=== PATIENT | female | born 1980 | race Caucasian/White ===

== ENCOUNTER → 2016-04-13 | Outpatient (CLI) | payer OTHER ==
[2016-04-13 16:42] LABS: CH 30.8; CHCM 32.7; HCT 39.7 % (34.0-46.0); HDW 2.98; HGB 12.7 gm/dL (11.4-16.0); MCH 30.4 pg (25.0-35.0); MCHC 31.9 g/dL (31.0-37.0); Mean Platelet Volume 7.8; RBC 4.18 m/uL (3.80-5.40); RDW 14.3 % (11.5-15.5); WBC 11.7 k/uL (3.8-10.6)
== END | disposition home or self-care (01) ==
LOC: LABWHC1 15:30
PROVIDERS: ATTEND Obstetrics & Gynecology
DX: Z34.02 Encounter for supervision of normal first pregnancy, second trimester (principal); Z3A.00 Weeks of gestation of pregnancy not specified
CPT/HCPCS: 36415; 82950; 85027

== ENCOUNTER → 2016-04-20 | Outpatient (CLI) | payer OTHER ==
[2016-04-20 12:44] LABS: Glucose 3 Hour, Gest 183 mg/dL
== END | disposition home or self-care (01) ==
LOC: LABWHC1 08:22
PROVIDERS: ATTEND Obstetrics & Gynecology
DX: O24.419 Gestational diabetes mellitus in pregnancy, unspecified control (principal); Z3A.00 Weeks of gestation of pregnancy not specified
CPT/HCPCS: 36415; 82951; 82952

== ENCOUNTER → 2016-05-15 | Outpatient (CLI) | payer OTHER ==
--- NOTE | 2016-05-15 11:47 | US ---
EXAMINATION TYPE: US OB >= 14 wk fetus third trimester DATE OF EXAM: 05/15/2016 11:30 AM COMPARISON: Prior ultrasound February 22, 2016 CLINICAL HISTORY: O36.63X0 LARGE FOR DATES TECHNIQUE: Transabdominal (TA) pelvic ultrasound GESTATIONAL AGE / DATING Physician Established: (31 weeks/2 days) EDC: 07/15/16 Dates by LMP: unknown Dates by First Scan: (31 weeks/2 days) EDC: 07/15/16 Dates by Current Scan: (30 weeks/5 days) EDC: 07/19/16 SURVEY IUP: Single PLACENTA: Anterior PREVIA: No Previa PATRICIA: 12.0 cm CERVICAL LENGTH (transabdominal: norm > 3.0cm): 3.0 cm BIOMETRY PRESENTATION: Vertex BPD: 8.1 cm 32 weeks / 3 days HC: 28.8 cm 31 weeks / 5 days AC: 26.8 cm 30 weeks / 6 days FL: 5.7 cm 30 weeks / 1 days ESTIMATED WEIGHT IN GRAMS: 1650 grams ESTIMATED WEIGHT IN LBS/OZS: 3 lbs. 10 oz. WEIGHT PERCENTAGE BASED ON ESTABLISHED DATES: 24% HC/AC: 1.1 FL/AC: 21.8 RHYTHM: Normal HEART RATE: 142 bpm MATERNAL WALL MEASUREMENT: 2.4 cm from skin to anterior uterine wall (if exam limited due to body hab itus). TECHNOLOGIST IMPRESSION: Normal appearing measurements, large body habitus. biometry measurements remain within normal limits on current study as detailed above. IMPRESSION: As above.
== END | disposition home or self-care (01) ==
LOC: RADUSWWP 10:49
PROVIDERS: ATTEND Obstetrics & Gynecology
DX: O36.63X0 Maternal care for excessive fetal growth, third trimester, not applicable or unspecified (principal); Z3A.31 31 weeks gestation of pregnancy
CPT/HCPCS: 76805

== ENCOUNTER → 2016-06-15 | Outpatient (CLI) | payer OTHER ==
[2016-06-15 18:32] LABS: Hemoglobin A1C 5.2 % (4.2-6.1)
== END | disposition home or self-care (01) ==
LOC: LABWHC1 14:22
PROVIDERS: ATTEND Obstetrics & Gynecology
DX: O24.419 Gestational diabetes mellitus in pregnancy, unspecified control (principal); Z3A.00 Weeks of gestation of pregnancy not specified
CPT/HCPCS: 36415; 83036

== ENCOUNTER 2016-07-08 18:22 | Inpatient (IN) | payer OTHER ==
[2016-07-08 19:15] VITALS: BMI 36.6
[2016-07-08] MEDS ORDERED: OXYTOCIN 10 UNIT/ML 1 ML VIAL IM PRN (19:25)
[2016-07-08] MEDS ORDERED: METHYLERGONOVINE 0.2 MG/ML 1 ML AMP IM PRN (19:25)
[2016-07-08] MEDS ORDERED: CARBOPROST TROMETHAMINE 250 MCG/ML 1 ML AMP IM PRN (19:25)
[2016-07-08] MEDS ORDERED: LIDOCAINE 1% (PF) 10 MG/ML (30 ML SDV) SQ PRN (19:25)
[2016-07-08] MEDS ORDERED: TERBUTALINE 1 MG/ML VIAL SQ PRN (19:25)
[2016-07-08] MEDS ORDERED: BUTORPHANOL 1 MG/ML 1 ML VIAL IV PRN (19:28)
[2016-07-08] MEDS ORDERED: OXYTOCIN 30 UNITS/500 ML NS 30 UNIT in SALINE 1 500ML.BAG IV SCH (19:30)
[2016-07-08] MEDS: LACTATED RINGERS 1,000 ML IV SCH ×2 (19:57→23:10)
[2016-07-08 19:59] LABS: Basophils % (A) 0 %; CH 30.4; CHCM 34.1; Eosinophils # (A) 0.1 k/uL (0-0.7); Eosinophils % (A) 0 %; HCT 41.2 % (34.0-46.0); HGB 13.7 gm/dL (11.4-16.0); Luc # (Auto) 0.25; Luc % (Auto) 2; Lymphocytes % (A) 13 %; MCH 29.8 pg (25.0-35.0); MCHC 33.3 g/dL (31.0-37.0); MCV 89.6 fL (80.0-100.0); Monocytes # (A) 0.6 k/uL (0-1.0); Monocytes % (A) 4 %; Neutrophils # (A) 12.1 k/uL (1.3-7.7); Neutrophils % (A) 80 %; RDW 14.5 % (11.5-15.5); WBC 15.1 k/uL (3.8-10.6); WBC (Perox) 15.06
[2016-07-08 20:12] LABS: Glucose,Whole Blood 96 mg/dL (75-99)
[2016-07-08 20:32] LABS: Hemoglobin A1C 5.3 % (4.2-6.1)
[2016-07-08] MEDS ORDERED: BUPIVACAINE (PF) 0.25% 30 ML VIAL ONE (22:08)
[2016-07-08] MEDS ORDERED: SODIUM CHLORIDE 0.9% 100 ML BAG ONE (22:08)
[2016-07-08] MEDS ORDERED: fentaNYL (PF) 50 MCG/ML 5 ML AMP ONE (22:08)
--- NOTE | 2016-07-09 02:55 | P.HPOB ---
History of Present Illness H&P Date: 07/09/16 Chief Complaint: SROM 36 year old presents at 38 weeks 6 days with spontaneous rupture of membranes at noon on 07-08-16. She presented around 7 pm and was 1-2/90/-2 anibal every 2-5 minutes. heart tones 110-115 with moderate variability and reactive. Review of Systems All systems: negative Constitutional: Denies chills, Denies fever Eyes: denies blurred vision, denies pain Ears, nose, mouth and throat: Denies headache, Denies sore throat Cardiovascular: Denies chest pain, Denies shortness of breath Respiratory: Denies cough Gastrointestinal: Denies abdominal pain, Denies diarrhea, Denies nausea, Denies vomiting Genitourinary: Denies dysuria, Denies hematuria Musculoskeletal: Denies myalgias Integumentary: Denies pruritus, Denies rash Neurological: Denies numbness, Denies weakness Psychiatric: Denies anxiety, Denies depression Endocrine: Denies fatigue, Denies weight change Past Medical History Past Medical History: No Reported History Additional Past Medical History / Comment(s): chronic back pain. Obstetric history: THis is her first and she has had care with Dr Valdez since 14 weeks. A+, abs neg, Rub Imm, RPR NR, Hep B neg. [facility] by [facility]. neg quad, normal anatomy US. Has been followed for GDM A1. GBS neg. History of Any Multi-Drug Resistant Organisms: None Reported Past Surgical History: No Surgical Hx Reported Past Anesthesia/Blood Transfusion Reactions: No Reported Reaction Past Psychological History: No Psychological Hx Reported Smoking Status: Never smoker Past Alcohol Use History: None Reported Past Drug Use History: None Reported - Past Family History Father Family Medical History: No Reported History Medications and Allergies Allergies Allergy/AdvReac Type Severity Reaction Status Date / Time pneumococcal 23-valent Allergy Rash/Hives Verified 11/12/15 23:03 polysacchari [From Pneumovax 23] Exam Osteopathic Statement: *. No significant issues noted on an osteopathic structural exam other than those noted in the History and Physical/Consult. - Vital Signs Vital signs: Vital Signs Temp Pulse Resp BP Pulse Ox 07/08/16 18:58 98.0 F 77 18 129/80 99 07/08/16 18:29 98.0 F 77 18 129/80 99 Intake and Output 07/08/16 07/08/16 07/09/16 14:59 22:59 06:59 Other: # Voids 1 Weight 99.79 kg Patient Weight 07/09/16 06:59 Weight 99.79 kg Heart: Regular rate and rhythm Lungs: Clear to auscultation bilaterally Abdomen: Soft, nontender Extremities: Negative Homans sign Results Result Diagrams: 07/08/16 19:45 Abnormal Lab Results - Last 24 Hours (Table) 07/08/16 Range/Units 19:45 WBC 15.1 H (3.8-10.6) k/uL Neutrophils # 12.1 H (1.3-7.7) k/uL Assessment and Plan (1) Spontaneous rupture of amniotic membranes Status: Acute (2) Normal labor Status: Acute Plan: 1. Admit to family place 2. Pitocin augmentation 3. Anticipate normal vaginal delivery
[2016-07-09] MEDS ORDERED: BENZOCAINE/MENTHOL SPRAY 1 GM/SPRAY AEROSOL TOPICAL PRN (03:54)
[2016-07-09] MEDS ORDERED: diphenhydrAMINE 25 MG CAP PO PRN (03:54)
[2016-07-09] MEDS ORDERED: WITCH HAZEL 1 EACH MED..PAD TOPICAL PRN (03:54)
[2016-07-09] MEDS ORDERED: diphenhydrAMINE 50 MG CAP PO PRN (03:54)
[2016-07-09] MEDS ORDERED: LANOLIN CREAM 5 GM TUBE TOPICAL PRN (03:54)
[2016-07-09] MEDS ORDERED: ACETAMINOPHEN TAB 325 MG TAB PO PRN (03:54)
[2016-07-09] MEDS ORDERED: ZOLPIDEM 5 MG TAB PO PRN (03:54)
[2016-07-09] MEDS ORDERED: SIMETHICONE 80 MG CHEWABLE PO PRN (03:54)
[2016-07-09] MEDS ORDERED: Acetaminophen-Codeine 300-30mg TAB PO PRN ×2 (03:54)
[2016-07-09] MEDS ORDERED: HYDROCORTISONE 2.5% RECTAL CREAM 30 GM TUBE RECTAL PRN (03:54)
[2016-07-09] MEDS ORDERED: diphenhydrAMINE 50 MG/ML 1 ML VIAL IVP PRN ×2 (03:54)
--- NOTE | 2016-07-09 04:02 | P.PROBDLV ---
Vaginal Delivery Note - . Vaginal Delivery Note: 36-year-old presented at 39 weeks with spontaneous rupture of membranes at noon. She presented to the hospital around 7 PM anibal every 2-5 minutes. Her cervix is dilated 1-2 cm, 90% effaced, -2 station. heart tones 110-115 with moderate variability and reactive. Pitocin augmentation was started. When she was 3 cm dilated she did get an epidural and was comfortable. She progressed slowly in her cervix was completely dilated at 3: 18 AM. She pushed, delivered a viable male infant over intact perineum under epidural anesthesia at 3:34 AM. Head delivered OA, nuchal cord 2 easily reduced, anterior shoulder which was the left shoulder delivered gentle downward traction followed by posterior shoulder and rest of body. Nose and mouth bulb suctioned, cord clamped and cut, infant placed mother's abdomen. Apgars 9, 9, weight 6 lbs. 14 oz. Placenta delivered spontaneously, intact with three-vessel cord at 3:36 AM. Vagina, cervix, and perineum were inspected. Bilateral labial lacerations repaired with 3-0 Vicryl. Estimated blood loss 250 mL. Mother and baby in stable condition.
[2016-07-09] MEDS: SENNOSIDES-DOCUSATE SODIUM 1 EACH TAB PO SCH ×2 (07:34→20:07)
[2016-07-09] MEDS: IBUPROFEN 600 MG TAB PO PRN ×2 (07:35→07:37)
[2016-07-09] MEDS: LACTATED RINGERS 1,000 ML IV SCH ×2 (20:07→22:42)
[2016-07-10 00:33] VITALS: TEMP 98
[2016-07-10] MEDS: IBUPROFEN 600 MG TAB PO PRN ×2 (04:16→11:28)
[2016-07-10 07:52] VITALS: BP 124/83; PULSE 79; RESP 20
[2016-07-10] MEDS: SENNOSIDES-DOCUSATE SODIUM 1 EACH TAB PO SCH (11:32)
--- NOTE | 2016-07-10 12:38 | P.DS ---
Providers Date of admission: 07/08/16 18:52 Expected date of discharge: 07/10/16 Attending physician: Shanon Robles Primary care physician: Franklin Valdez - Discharge Diagnosis(es) (1) Spontaneous rupture of amniotic membranes Current Visit: Yes Status: Resolved (2) Normal labor Current Visit: Yes Status: Resolved Hospital Course: 36-year-old presented at 39 weeks with spontaneous rupture of membranes and in labor. She did have Pitocin augmentation and an epidural. She underwent normal vaginal delivery and had an uncomplicated course. She denies nausea, vomiting, chest pain, shortness of breath, fever, chills, or calf pain. She will be discharged home day #1 in stable condition to follow-up with Dr. Valdez in 6 weeks. Plan - Discharge Summary New Discharge Prescriptions: Ibuprofen [Motrin] 600 mg PO Q6HR PRN #30 tab PRN Reason: Mild Pain Or Fever >= 100.5 Discharge Medication List Cephalexin [Keflex] 500 mg PO Q6HR #28 cap 11/13/15 [Rx] Ibuprofen [Motrin] 600 mg PO Q6HR PRN #30 tab 07/10/16 [Rx] Follow up Appointment(s)/Referral(s): Franklin Valdez DO [Primary Care Provider] - 6 Weeks Discharge Disposition: HOME SELF-CARE
== END 2016-07-10 16:20 | disposition home or self-care (01) | DRG 775 ==
LOC: FBPOP 18:22 → 4FBP 18:52
PROVIDERS: ADMIT Obstetrics & Gynecology; ATTEND Obstetrics & Gynecology
PROC: 10E0XZZ Delivery of Products of Conception, External Approach (ICD-10-PCS; principal; 2016-07-09)
PROC: 0HQ9XZZ Repair Perineum Skin, External Approach (ICD-10-PCS; 2016-07-09)
PROC: 00HU33Z Insertion of Infusion Device into Spinal Canal, Percutaneous Approach (ICD-10-PCS; 2016-07-09)
DX: O69.81X0 Labor and delivery complicated by cord around neck, without compression, not applicable or unspecified (principal); O24.420 Gestational diabetes mellitus in childbirth, diet controlled; G89.29 Other chronic pain; O99.89 Other specified diseases and conditions complicating pregnancy, childbirth and the puerperium; O70.0 First degree perineal laceration during delivery; M54.9 Dorsalgia, unspecified; Z37.0 Single live birth; Z3A.39 39 weeks gestation of pregnancy
CPT/HCPCS: 59025; 83036; 84112; 85025; 88307; 99213

== ENCOUNTER 2017-07-03 15:17 | Outpatient (CLI) | payer OTHER ==
[2017-07-03 15:42] LABS: Appearance,Urine Clear (Clear); Bilirubin,Urine Negative (Negative); Blood,Urine Negative (Negative); Color,Urine Light Yellow; Glucose,Urine (UA) Negative (Negative); Ketones,Urine Negative (Negative); Leukocyte Esterase,Urine Negative (Negative); Nitrite,Urine Negative (Negative); PH, Urine 6.5 (5.0-8.0); Protein,Urine Negative (Negative); Specific Gravity,Urine 1.002 (1.001-1.035); Urobilinogen,Urine <2.0 mg/dL (<2.0)
[2017-07-03 15:55] LABS: Basophils % (A) 0 %; Eosinophils # (A) 0.2 k/uL (0-0.7); Eosinophils % (A) 3 %; HGB 11.8 gm/dL (11.4-16.0); Lymphocytes # (A) 1.8 k/uL (1.0-4.8); Lymphocytes % (A) 27 %; MCH 28.1 pg (25.0-35.0); MCHC 32.7 g/dL (31.0-37.0); MCV 85.9 fL (80.0-100.0); Mean Platelet Volume 8.2; Monocytes # (A) 0.5 k/uL (0-1.0); Monocytes % (A) 7 %; Neutrophils # (A) 3.9 k/uL (1.3-7.7); Neutrophils % (A) 60 %; Platelet Count 199 k/uL (150-450); RBC 4.19 m/uL (3.80-5.40); RDW 14.5 % (11.5-15.5); WBC 6.5 k/uL (3.8-10.6)
[2017-07-03 16:05] LABS: ALT 30 U/L (9-52); AST 20 U/L (14-36); Blood Urea Nitrogen 5 mg/dL (7-17); LDH 523 U/L (313-618); Uric Acid 5.3 mg/dL (3.7-7.4)
--- NOTE | 2017-07-16 08:00 | P.MSEPDOC ---
Presenting Problems - Arrival Data Date of Arrival on Unit: 07/03/17 Time of Arrival on Unit: 15:30 Mode of Transport: Ambulatory - Complaint OB-Reason for Admission/Chief Complaint: PIH Comment: Pt arrived with script for PIH work up, seen by Dr. Valdez prior to arrival to triage. No MSE required. Medical History - Information : 2 Para: 1 Term: 1 : 0 Abortions: Spontaneous or Elective: 0 Number of Living Children: 1 - Gestational Age Gestational Age by JADYN (wks/days): 36 Weeks and 3 Days Disposition - Disposition OB Disposition: Discharge to home, Written follow up instructions reviewed Discharge Date: 07/03/17 Discharge Time: 16:25 I agree with the RN Medical Screening Exam: Yes Risk & Benefit of care provided described in d/c instruction: Yes Diagnosis: GESTATIONAL HTN W/O SIGNIFICANT PROTEINURIA, THIRD TRIMESTER
== END 2017-07-03 16:26 | disposition home or self-care (01) ==
LOC: FBPOP 15:17
PROVIDERS: ATTEND Obstetrics & Gynecology
DX: O13.3 Gestational [pregnancy-induced] hypertension without significant proteinuria, third trimester (principal); Z3A.36 36 weeks gestation of pregnancy
CPT/HCPCS: 59025; 81003; 82565; 83615; 84450; 84460; 84520; 84550; 85025

== ENCOUNTER 2017-07-23 10:10 | Inpatient (IN) | payer OTHER ==
[2017-07-22 15:48] VITALS: BMI 39.2
[2017-07-23] MEDS ORDERED: CITRIC ACID-SODIUM CITRATE 15 ML CUP PO ONE (10:44)
[2017-07-23] MEDS ORDERED: ceFAZolin IN SWFI 2 GM/20 ML SYRINGE IVP ONE (10:45)
[2017-07-23 11:36] LABS: Basophils % (A) 0 %; Eosinophils # (A) 0.1 k/uL (0-0.7); Eosinophils % (A) 1 %; HCT 34.6 % (34.0-46.0); HGB 11.4 gm/dL (11.4-16.0); Lymphocytes # (A) 1.8 k/uL (1.0-4.8); Lymphocytes % (A) 16 %; MCHC 33.1 g/dL (31.0-37.0); MCV 84.5 fL (80.0-100.0); Monocytes # (A) 0.6 k/uL (0-1.0); Monocytes % (A) 5 %; Neutrophils # (A) 8.4 k/uL (1.3-7.7); Neutrophils % (A) 76 %; Platelet Count 204 k/uL (150-450); RBC 4.09 m/uL (3.80-5.40); RDW 15.1 % (11.5-15.5); WBC 11.1 k/uL (3.8-10.6)
[2017-07-23] MEDS ORDERED: NALBUPHINE 10 MG/ML AMPUL ONE (12:20)
[2017-07-23] MEDS ORDERED: MORPHINE SULFATE (PF) 0.3 MG/0.3 ML SYR ONE (12:20)
[2017-07-23] MEDS ORDERED: KETOROLAC 30 MG/ML 1 ML VIAL ONE (12:20)
[2017-07-23] MEDS ORDERED: PHENYLEPHRINE-0.9% NACL SYG 1 MG/10 ML SYRINGE ONE (12:20)
[2017-07-23] MEDS ORDERED: ONDANSETRON 4 MG/2 ML VIAL ONE (12:20)
[2017-07-23] MEDS ORDERED: OXYTOCIN 10 UNIT/ML 1 ML VIAL ONE (12:20)
[2017-07-23] MEDS ORDERED: NALOXONE 0.4 MG/ML 1 ML VIAL IV PRN (12:57)
[2017-07-23] MEDS ORDERED: METOCLOPRAMIDE 5 MG/ML 2 ML VIAL IVP PRN (12:57)
[2017-07-23] MEDS ORDERED: ACETAMINOPHEN TAB 325 MG TAB PO PRN (12:57)
[2017-07-23] MEDS ORDERED: ONDANSETRON 4 MG/2 ML VIAL IVP PRN (12:57)
[2017-07-23] MEDS ORDERED: KETOROLAC 30 MG/ML 1 ML VIAL IVP PRN (12:57)
[2017-07-23] MEDS ORDERED: diphenhydrAMINE 25 MG CAP PO PRN (12:57)
[2017-07-23] MEDS ORDERED: diphenhydrAMINE 50 MG/ML 1 ML VIAL IVP PRN ×2 (12:57)
[2017-07-23] MEDS ORDERED: diphenhydrAMINE 50 MG CAP PO PRN (12:57)
[2017-07-23] MEDS ORDERED: ZOLPIDEM 5 MG TAB PO PRN (12:57)
[2017-07-23] MEDS ORDERED: HYDROcodone/APAP 5-325MG 1 EACH TAB PO PRN (12:59)
--- NOTE | 2017-07-23 13:01 | P.HPOB ---
History of Present Illness H&P Date: 07/23/17 Chief Complaint: Intrauterine at 39 weeks in breech presentation Abena is a 29-year-old at 39 and 2 weeks gestation who arrives for primary section due to breech presentation. Risks/benefits/ alternatives to a primary section with bilateral partial salpingectomy for family planning was done. Her course generally speaking was unremarkable. She is 37 years old and initially had an abnormal quad screen, but a recalculation reported out as negative. She was offered appointments with maternal- medicine but refused. She did pass her 3 her Glucola screen despite being gestationally diabetic last . Pertinent labs include A+ blood type, Rh antibody was negative. Rubella was immune, hepatitis B surface antigen as well as RPR both negative. Assessment intrauterine at term. Plan primary low transverse section with bilateral partial salpingectomy Past Medical History Past Medical History: Asthma Additional Past Medical History / Comment(s): chronic back pain,hx gestational diabetes with 1 rst ,yeast infecetion under abdominal fold. History of Any Multi-Drug Resistant Organisms: None Reported Past Surgical History: No Surgical Hx Reported Past Anesthesia/Blood Transfusion Reactions: No Reported Reaction Additional Past Anesthesia/Blood Transfusion Reaction / Comment(s): no hx of general anesthesia Past Psychological History: No Psychological Hx Reported Smoking Status: Never smoker Past Alcohol Use History: None Reported Past Drug Use History: None Reported - Past Family History Father Family Medical History: No Reported History Medications and Allergies Allergies Allergy/AdvReac Type Severity Reaction Status Date / Time pneumococcal 23-valent Allergy cellultitis Verified 07/22/17 15:40 polysacchari [From Pneumovax 23] Exam Osteopathic Statement: *. No significant issues noted on an osteopathic structural exam other than those noted in the History and Physical/Consult. - Vital Signs Vital signs: Vital Signs Temp Pulse Resp BP Pulse Ox 07/23/17 10:24 96.6 F L 111 H 16 130/81 96 Intake and Output 07/22/17 07/23/17 07/23/17 22:59 06:59 14:59 Other: Weight 107.048 kg 107.048 kg - OBG Physical Exam Breast: both: normal (no masses) Abdomen: bowel sounds normal, no diffuse tenderness, no bruit present, no guarding noted, no hepatomegaly, no splenomegaly, no mass Vulva: both: normal Vagina: normal moisture, no discharge Cervix: no lesion, no discharge Uterus: normal size, normal contour Adnexa: both: normal Anus/Rectum: normal perianal skin, no rectal mass, no hemorrhoids, heme negative Results Result Diagrams: 07/23/17 10:57 Abnormal Lab Results - Last 24 Hours (Table) 07/23/17 Range/Units 10:57 WBC 11.1 H (3.8-10.6) k/uL Neutrophils # 8.4 H (1.3-7.7) k/uL
--- NOTE | 2017-07-23 13:05 | P.OP ---
Date of Procedure: 07/23/17 Preoperative Diagnosis: Intrauterine at 39 weeks breech presentation: Family planning Postoperative Diagnosis: Same Procedure(s) Performed: Primary low transverse section from Pfannenstiel with bilateral partial salpingectomy Anesthesia: spinal Surgeon: Franklin Valdez Cage Manager #1: Aretha lPunkett Estimated Blood Loss (ml): 500 IV fluids (ml): 700 Urine output (ml): 100 Pathology: other (Placenta) Condition: stable Disposition: floor Operative Findings: Female scores of 9 and 9 at one and 5 minutes respectively and weight was 7 lbs. 14 oz. It was noted preoperatively that both she and her requested a tubal ligation. There were adamant that they were done having children and that she did not want to go through any more pregnancies and that permanent sterilization was what they desired. It was not previously discussed but as she is 37 years old and she is having a section from my standpoint is safer to do it now than to take her back to surgery at a later date. Description of Procedure: Patient was taken to the operating suite where spinal anesthetic was found be adequate. She was prepped and draped in the normal sterile fashion and placed in the dorsal supine position with leftward tilt. Initially a Pfannenstiel skin incision was made this incision was then carried through to underlying layer of the fascia was second knife. Fascia was then nicked in the midline and this opening was extended laterally with Pineda scissors. Superior and inferior aspect of this incision was then grasped tented up and bluntly and sharply dissected off the rectus muscles. Rectus muscles were then divided the midline and blunt dissection through the peritoneum was made. This opening was then extended superiorly and inferiorly with good visualization of both bowel bladder. Bladder blade was then placed and the bladder flap was identified and entered with the thumb scissors and carried across face the uterus with Metzenbaum scissors visually creating bladder flap. Next then used to incise uterus was fully developed through with hemostat and bluntly extended. Bladder was then brought up into the incision and baby was bottle was delivered with legs with gentle traction shoulders were swept and cleared and the head with a nuchal cord 1 was easily delivered and the nuchal was easily reduced. Mouth nares were then bulb suctioned and umbilical cord was clamped and cut in usual fashion with nursery being present to assume care. Placenta was then delivered intact and Pitocin was added to the IV. Uterus was then exteriorized cleared of clots and debris and closed in 1 layer with 0 Vicryl suture. Once excellent hemostasis was obtained 3-0 Vicryl was used to reapproximate the bladder flap. Fallopian tubes were then identified with hemostats clamped 3 cm from uterine cornu and a window created in the mesosalpinx with Bovie cautery. 2 proximal and 2 distal 2-0 silk sutures were placed approximately 2 cm apart with the intervening segment excised and tips cauterized. Once this was accomplished blood and debris was suctioned from the posterior cul-de-sac and the uterus was reinserted into the abdomen. Peritoneal layer was then closed with 0 Vicryl suture fascial layer was closed with 0 Vicryl suture one layer of 3-0 Vicryl was placed in deep subcuticular tissues to reapproximate the skin and close the space. Skin was then closed with 3-0 Vicryl subcuticularly. Sponge, lap, needle counts were all correct 2. Patient was then taken to the recovery room in stable and satisfactory condition.
[2017-07-23] MEDS: SENNOSIDES-DOCUSATE SODIUM 1 EACH TAB PO SCH (22:23)
[2017-07-23] MEDS: LACTATED RINGERS 1,000 ML IV SCH (22:25)
[2017-07-24] MEDS ORDERED: KETOROLAC 30 MG/ML 1 ML VIAL ONE (01:00)
[2017-07-24] MEDS ORDERED: LACTATED RINGERS 1,000 ML BAG IV ONE (01:00)
--- NOTE | 2017-07-24 06:41 | P.PNOBGPC ---
Subjective - Subjective Principal diagnosis: Postop day 1 Interval history: Voices no complaints. He is ambulating, voiding, and she is tolerating her diet well. Patient reports: Reports appetite normal, Reports voiding normally, Reports pain well controlled, Reports ambulating normally : doing well Objective - Vital Signs Latest vital signs: Vital Signs Temp Pulse Resp BP Pulse Ox 07/23/17 20:00 97.6 F 75 16 111/67 07/23/17 16:00 97.7 F 77 16 117/69 95 07/23/17 15:03 96.3 F L 76 15 112/67 07/23/17 14:30 66 15 118/65 07/23/17 14:00 97 F L 68 16 99 07/23/17 13:49 67 16 111/61 97 07/23/17 13:34 71 16 102/56 96 07/23/17 13:20 78 15 107/61 97 07/23/17 13:05 97.1 F L 82 15 99/55 98 07/23/17 10:24 96.6 F L 111 H 16 130/81 96 Intake and Output 07/23/17 07/23/17 07/24/17 14:59 22:59 06:59 Output Total 400 Balance -400 Output: Urine 400 Uretheral ([place]) 200 Other: # Emeses 4 Weight 107.048 kg - Exam Lungs: bilateral: normal Chest: Normal S1, Normal S2 Extremities: Present: normal Abdomen: Present: normal appearance, soft. Absent: distention, tenderness Incision: Present: normal, dry, intact Uterus: Present: normal, firm - Labs Labs: Abnormal Lab Results - Last 24 Hours (Table) 07/23/17 Range/Units 10:57 WBC 11.1 H (3.8-10.6) k/uL Neutrophils # 8.4 H (1.3-7.7) k/uL Assessment and Plan Assessment: Post op day 1 Plan: Continue current care
[2017-07-24] MEDS: SENNOSIDES-DOCUSATE SODIUM 1 EACH TAB PO SCH ×2 (07:49→19:20)
[2017-07-24 08:00] LABS: Basophils % (A) 0 %; Eosinophils # (A) 0.1 k/uL (0-0.7); Eosinophils % (A) 1 %; HCT 32.1 % (34.0-46.0); HGB 10.5 gm/dL (11.4-16.0); Lymphocytes # (A) 1.7 k/uL (1.0-4.8); Lymphocytes % (A) 15 %; MCH 27.7 pg (25.0-35.0); MCHC 32.8 g/dL (31.0-37.0); MCV 84.6 fL (80.0-100.0); Mean Platelet Volume 7.7; Monocytes # (A) 0.5 k/uL (0-1.0); Monocytes % (A) 5 %; Neutrophils # (A) 8.6 k/uL (1.3-7.7); Neutrophils % (A) 77 %; Platelet Count 182 k/uL (150-450); Poikilocytosis Slight; RBC 3.79 m/uL (3.80-5.40); RDW 15.1 % (11.5-15.5); WBC 11.2 k/uL (3.8-10.6)
--- NOTE | 2017-07-24 08:38 | P.PN ---
Progress Note - Text Progress Note Date: 07/24/17 Postoperative day 1 status post section under spinal anesthesia, and intrathecal morphine given for postoperative analgesia, patient doing well, there is no anesthesia related complications, Patient had no headache, vital signs stable , Assessment and plan= postop day 1 status post , doing well there is no anesthesia related complication.
[2017-07-24] MEDS: IBUPROFEN 600 MG TAB PO PRN ×2 (15:54→22:41)
[2017-07-24] MEDS: LACTATED RINGERS 1,000 ML IV SCH ×2 (21:15→21:18)
[2017-07-25] MEDS: HYDROcodone/APAP 5-325MG 1 EACH TAB PO PRN ×2 (01:56→08:27)
[2017-07-25] MEDS: IBUPROFEN 600 MG TAB PO PRN ×2 (04:54→15:38)
[2017-07-25] MEDS: SENNOSIDES-DOCUSATE SODIUM 1 EACH TAB PO SCH (08:26)
[2017-07-25 08:59] VITALS: RESP 18
--- NOTE | 2017-07-25 09:28 | P.DS ---
Providers Date of admission: 07/23/17 10:10 Expected date of discharge: 07/25/17 Attending physician: Franklin Valdez Primary care physician: Stated None Hospital Course: Brain is doing very well postop day 2. She is involuting, voiding, and she is tolerating her diet. She voices no complaints this and is requesting discharge home today. Vital signs are stable and she is afebrile. Heart regular, lungs clear, extremities are without pain. Osteopathic exams unremarkable. Abdomen soft and uterus is firm below the umbilicus with her incision being clean dry and intact. Assessment postop day 2. Plan discharged home follow up with me in 1 week. Discharge instructions were thoroughly reviewed and all questions are answered for her prior to her discharge. She is being prescribed approximately 3 day course of Gray for pain and therefore no map was run. Assessment postop day 2. Plan discharged home follow up with me in 1 week. Patient Condition at Discharge: Good Plan - Discharge Summary Discharge Rx Participant: Yes New Discharge Prescriptions: New HYDROcodone/APAP 5-325MG [Gray 5-325] 1 tab PO Q4HR PRN #30 tab PRN Reason: Pain Ibuprofen [Motrin] 600 mg PO Q6HR PRN #30 tab PRN Reason: Pain Discharge Medication List HYDROcodone/APAP 5-325MG [Gray 5-325] 1 tab PO Q4HR PRN #30 tab 07/25/17 [Rx] Ibuprofen [Motrin] 600 mg PO Q6HR PRN #30 tab 07/25/17 [Rx] Follow up Appointment(s)/Referral(s): Franklin Valdez DO [Doctor of Osteopathic Medicine] - 1 Week Activity/Diet/Wound Care/Special Instructions: No heavy lifting, limit stairs and driving, and pelvic rest. If any high temperatures, heavy bleeding, or severe pain call my office. Please wash the incision twice daily with gentle soap and water. Discharge Disposition: HOME SELF-CARE
[2017-07-25 15:43] VITALS: BP 122/69; PULSE 79; TEMP 97.8
== END 2017-07-25 18:14 | disposition home or self-care (01) | DRG 766 ==
LOC: 4FBP 10:10
PROVIDERS: ADMIT Obstetrics & Gynecology; ATTEND Obstetrics & Gynecology
PROC: 10D00Z1 Extraction of Products of Conception, Low, Open Approach (ICD-10-PCS; principal; 2017-07-23 12:20)
PROC: 0UB70ZZ Excision of Bilateral Fallopian Tubes, Open Approach (ICD-10-PCS; principal; 2017-07-23 12:20)
DX: O32.1XX0 Maternal care for breech presentation, not applicable or unspecified (principal); J45.909 Unspecified asthma, uncomplicated; O99.52 Diseases of the respiratory system complicating childbirth; Z30.2 Encounter for sterilization; Z37.0 Single live birth; Z3A.39 39 weeks gestation of pregnancy; Z88.7 Allergy status to serum and vaccine
CPT/HCPCS: 85025; 86850; 86900; 86901; 88302; 88307

== ENCOUNTER 2018-12-19 16:15 | Emergency (ER) | payer OTHER ==
[2018-12-19] MEDS ORDERED: ASPIRIN 81 MG PO STA (16:51)
[2018-12-19] MEDS ORDERED: SODIUM CHLORIDE 0.9% 1,000 ML IV STA (16:51)
[2018-12-19 17:19] LABS: Basophils # (A) 0.1 k/uL (0-0.2); Basophils % (A) 1 %; Eosinophils # (A) 0.2 k/uL (0-0.7); Eosinophils % (A) 2 %; HCT 41.6 % (34.0-46.0); HGB 14.2 gm/dL (11.4-16.0); Lymphocytes % (A) 25 %; MCV 88.1 fL (80.0-100.0); Mean Platelet Volume 6.8; Monocytes # (A) 0.4 k/uL (0-1.0); Monocytes % (A) 5 %; Neutrophils # (A) 5.5 k/uL (1.3-7.7); Neutrophils % (A) 66 %; Platelet Count 220 k/uL (150-450); RBC 4.72 m/uL (3.80-5.40); RDW 13.9 % (11.5-15.5); WBC 8.3 k/uL (3.8-10.6)
--- NOTE | 2018-12-19 17:30 | XR ---
EXAMINATION TYPE: XR chest 2V DATE OF EXAM: 12/19/2018 COMPARISON: Chest x-ray February 21, 2011. HISTORY: Chest pain. TECHNIQUE: Frontal and lateral views of the chest are obtained. FINDINGS: There is no focal air space opacity, pleural effusion, or pneumothorax seen. The cardiac silhouette size is within normal limits. The osseous structures are intact. IMPRESSION: No acute process. No significant change from prior.
[2018-12-19 17:34] LABS: D-Dimer 0.24 mg/L FEU (<0.60); Partial Thromboplastin Time 25.7 sec (22.0-30.0); Prothrombin Time 10.4 sec (9.0-12.0)
[2018-12-19 17:45] LABS: ALT 33 U/L (9-52); AST 20 U/L (14-36); African American GFR (CKD) >90 (>60 ml/min/1.73 sqM); Albumin 4.2 g/dL (3.5-5.0); Alkaline Phosphatase 71 U/L (38-126); Anion Gap 9 mmol/L; Blood Urea Nitrogen 11 mg/dL (7-17); Calcium 9.3 mg/dL (8.4-10.2); Carbon Dioxide 25 mmol/L (22-30); Chloride 106 mmol/L (98-107); Glucose 126 mg/dL (74-99); Magnesium 1.9 mg/dL (1.6-2.3); Non-African American GFR(CKD) 78 (>60 ml/min/1.73 sqM); Potassium 4.1 mmol/L (3.5-5.1); Sodium 140 mmol/L (137-145); Total Bilirubin 0.5 mg/dL (0.2-1.3); Total Protein 7.3 g/dL (6.3-8.2)
[2018-12-19 19:10] VITALS: BP 125/81; PULSE 82; RESP 18; TEMP 98
--- NOTE | 2018-12-19 19:26 | ED ---
General Adult HPI - General Chief complaint: Chest Pain Stated complaint: Chest Pain Time Seen by Provider: 12/19/18 16:31 Source: patient, RN notes reviewed, old records reviewed Mode of arrival: ambulatory Limitations: no limitations - History of Present Illness Initial comments: 38-year-old female patient sent to ED chief complaint chest pain. Patient reports that approximately an hour prior to presentation she experienced a substernal stabbing chest pain. Patient worsens she did have some associated nausea. Patient reports that a continued upon presenting to the ER. Patient denies any associated shortness of breath. Denies any other complaints at this time. Systemic: Pt denies fatigue, fever/chills, rash. Pt denies weakness, night sweats, weight loss. Neuro: Pt denies headache, visual disturbances, syncope or pre-syncope. HEENT: Pt denies ocular discharge or irritation, otalgia, rhinorrhea, pharyngitis or notable lymphadenopathy. Cardiopulmonary: Pt denies SOB, heart palpitations, dyspnea on exertion. Abdominal/GI: Pt denies abdominal pain, n/v/d. : Pt denies dysuria, burning w/ urination, frequency/urgency. Denies new onset urinary or bowel incontinence. MSK: Pt denies myalgia, loss of strength or function in extremities. Neuro: Pt denies new onset weakness, paresthesias. - Related Data Home Medications Medication Instructions Recorded Confirmed No Known Home Medications 12/19/18 12/19/18 Allergies Allergy/AdvReac Type Severity Reaction Status Date / Time pneumococcal 23-valent Allergy cellultitis Verified 12/19/18 16:51 polysacchari [From Pneumovax 23] Review of Systems ROS Statement: Those systems with pertinent positive or pertinent negative responses have been documented in the HPI. ROS Other: All systems not noted in ROS Statement are negative. Past Medical History Past Medical History: Asthma Additional Past Medical History / Comment(s): chronic back pain,hx gestational diabetes with 1 rst ,yeast infecetion under abdominal fold. History of Any Multi-Drug Resistant Organisms: None Reported Past Surgical History: Section, Tubal Ligation Past Anesthesia/Blood Transfusion Reactions: No Reported Reaction Additional Past Anesthesia/Blood Transfusion Reaction / Comment(s): no hx of general anesthesia Past Psychological History: No Psychological Hx Reported Smoking Status: Former smoker Past Alcohol Use History: None Reported Past Drug Use History: None Reported - Past Family History Father Family Medical History: No Reported History General Exam - General Exam Comments Initial Comments: Constitutional: NAD, AOX3, Pt has pleasant affect. HEENT: NC/AT, trachea midline, neck supple, no lymphadenopathy. Posterior pharynx non erythematous, without exudates. External ears appear normal, without discharge. Mucous membranes moist. Eyes PERRLA, EOM intact. There is no scleral icterus. No pallor noted. Cardiopulmonary: RRR, no murmurs, rubs or gallops, no JVD noted. Lungs CTAB in anterior and posterior hernandez. No peripheral edema. Abdominal exam: Abdomen soft and non-distended. Abdomen non-tender to palpation in all 4 quadrants. Bowel sounds active in LLQ. No hepatosplenomegaly. No ecchymosis Neuro: CN II-XII grossly intact. No nuchal rigidity. No raccon eyes, no ravi sign, no hemotympanum. No cervical spinal tenderness. MSK: No posterior calf tenderness bilaterally, homans sign negative bilaterally. Posterior tibialis and radial pulse +2 bilaterally. Sensation intact in upper and lower extremities. Full active ROM in upper and lower extremities, 5/5 stregnth. Limitations: no limitations Course Vital Signs 12/19/18 12/19/18 16:19 19:08 Temperature 98.0 F 98 F Pulse Rate 75 82 Respiratory 23 18 Rate Blood Pressure 160/111 125/81 O2 Sat by Pulse 100 100 Oximetry Medical Decision Making - Medical Decision Making 38-year-old female patient sent to ED chief complaint chest pain that began 1 hour prior to presentation. Patient works that she had some nausea without vomiting. Patient denies any radiation pain. Patient vital signs stable, afebrile. Physical exam did not display acute pathology. EKG displayed no nspecific T-wave abnormality. Laboratory investigations were non immpressive. D-dimer negative. Troponin negative. Chest x-ray did not display acute pathology. Pain was relieved by aspirin and nitro. Patient was strongly urged to stay for serial enzymes, cardiology evaluation. Patient declined. Explained to patient that I had a serious concern that complaints are cardiac in nature. Risks were explained to patient extensively, including the due to onset of symptoms is likely that serum troponin would be undetectable. Risks discussed with patient including . Patient verbalized understanding. Patient was discharged AMA, will be referred to [facility]ology associates in [facility]. Return precautions were discussed. Case discussed in depth with Dr. Salgado. - Lab Data Result diagrams: 12/19/18 17:04 12/19/18 17:04 Lab Results 12/19/18 12/19/18 12/19/18 Range/Units 17:04 17:04 17:04 WBC 8.3 (3.8-10.6) k/uL RBC 4.72 (3.80-5.40) m/uL Hgb 14.2 (11.4-16.0) gm/dL Hct 41.6 (34.0-46.0) % MCV 88.1 (80.0-100.0) fL MCH 30.0 (25.0-35.0) pg MCHC 34.0 (31.0-37.0) g/dL RDW 13.9 (11.5-15.5) % Plt Count 220 (150-450) k/uL Neutrophils % 66 % Lymphocytes % 25 % Monocytes % 5 % Eosinophils % 2 % Basophils % 1 % Neutrophils # 5.5 (1.3-7.7) k/uL Lymphocytes # 2.0 (1.0-4.8) k/uL Monocytes # 0.4 (0-1.0) k/uL Eosinophils # 0.2 (0-0.7) k/uL Basophils # 0.1 (0-0.2) k/uL PT 10.4 (9.0-12.0) sec INR 1.0 (<1.2) APTT 25.7 (22.0-30.0) sec D-Dimer 0.24 (<0.60) mg/L FEU Sodium 140 (137-145) mmol/L Potassium 4.1 (3.5-5.1) mmol/L Chloride 106 (98-107) mmol/L Carbon Dioxide 25 (22-30) mmol/L Anion Gap 9 mmol/L BUN 11 (7-17) mg/dL Creatinine 0.93 (0.52-1.04) mg/dL Est GFR (CKD-EPI)AfAm >90 (>60 ml/min/1.73 sqM) Est GFR (CKD-EPI)NonAf 78 (>60 ml/min/1.73 sqM) Glucose 126 H (74-99) mg/dL Calcium 9.3 (8.4-10.2) mg/dL Magnesium 1.9 (1.6-2.3) mg/dL Total Bilirubin 0.5 (0.2-1.3) mg/dL AST 20 (14-36) U/L ALT 33 (9-52) U/L Alkaline Phosphatase 71 (38-126) U/L Troponin I (0.000-0.034) ng/mL NT-Pro-B Natriuret Pep pg/mL Total Protein 7.3 (6.3-8.2) g/dL Albumin 4.2 (3.5-5.0) g/dL 12/19/18 12/19/18 Range/Units 17:04 17:04 WBC (3.8-10.6) k/uL RBC (3.80-5.40) m/uL Hgb (11.4-16.0) gm/dL Hct (34.0-46.0) % MCV (80.0-100.0) fL MCH (25.0-35.0) pg MCHC (31.0-37.0) g/dL RDW (11.5-15.5) % Plt Count (150-450) k/uL Neutrophils % % Lymphocytes % % Monocytes % % Eosinophils % % Basophils % % Neutrophils # (1.3-7.7) k/uL Lymphocytes # (1.0-4.8) k/uL Monocytes # (0-1.0) k/uL Eosinophils # (0-0.7) k/uL Basophils # (0-0.2) k/uL PT (9.0-12.0) sec INR (<1.2) APTT (22.0-30.0) sec D-Dimer (<0.60) mg/L FEU Sodium (137-145) mmol/L Potassium (3.5-5.1) mmol/L Chloride (98-107) mmol/L Carbon Dioxide (22-30) mmol/L Anion Gap mmol/L BUN (7-17) mg/dL Creatinine (0.52-1.04) mg/dL Est GFR (CKD-EPI)AfAm (>60 ml/min/1.73 sqM) Est GFR (CKD-EPI)NonAf (>60 ml/min/1.73 sqM) Glucose (74-99) mg/dL Calcium (8.4-10.2) mg/dL Magnesium (1.6-2.3) mg/dL Total Bilirubin (0.2-1.3) mg/dL AST (14-36) U/L ALT (9-52) U/L Alkaline Phosphatase (38-126) U/L Troponin I <0.012 (0.000-0.034) ng/mL NT-Pro-B Natriuret Pep 60 pg/mL Total Protein (6.3-8.2) g/dL Albumin (3.5-5.0) g/dL - EKG Data -: EKG Interpreted by Me (and Dr. Salgado ) EKG Comments: Ventricular rate 77, AR interval 130, QRS 92, QT/QTc 402/454. Normal sinus rhythm, nonspecific T-wave abnormality, abnormal EKG. Disposition Clinical Impression: Chest pain Disposition: Left Against Medical Advice Condition: Undetermined Instructions (If sedation given, give patient instructions): Chest Pain (ED) Additional Instructions: Patient to adhere to previously discussed treatment plan and will take medication(s) as directed. Patient to follow up with PCP in 1-2 days. Patient to return to ED if symptoms do not improve. Follow-up with primary care provider and cardiology tomorrow, return to ER if condition worsens. Is patient prescribed a controlled substance at d/c from ED?: No Referrals: Gregorio Hayden MD [Primary Care Provider] - 1-2 days Isaiah Cerrato MD [STAFF PHYSICIAN] - 1-2 days
== END 2018-12-19 20:06 | disposition left against medical advice (07) ==
LOC: EC 16:15
DX: R07.2 Precordial pain (principal); R11.0 Nausea; Z87.09 Personal history of other diseases of the respiratory system; Z87.891 Personal history of nicotine dependence; Z53.29 Procedure and treatment not carried out because of patient's decision for other reasons; Z88.7 Allergy status to serum and vaccine
CPT/HCPCS: 36415; 71046; 80053; 83735; 83880; 84484; 85025; 85379; 85610; 85730; 93005; 96360; 96361; 99285

== ENCOUNTER 2019-12-12 15:59 | Emergency (ER) | payer OTHER ==
[2019-12-12] MEDS ORDERED: GELATIN SPONGE,ABSORB (LARGE) 1 EACH SPONGE TOPICAL STA (16:17)
[2019-12-12 16:29] VITALS: BP 107/62; PULSE 73; RESP 16; TEMP 98.5
--- NOTE | 2019-12-12 17:12 | ED ---
General Adult HPI - General Source: patient, RN notes reviewed, old records reviewed Mode of arrival: ambulatory Limitations: no limitations <Vern Calhoun - Last Filed: 12/12/19 17:46> <Dianne Vu - Last Filed: 12/13/19 13:44> - General Chief complaint: Wound/Laceration Stated complaint: Right finger lac Time Seen by Provider: 12/12/19 16:11 - History of Present Illness Initial comments: 39-year-old female patient presents to ED for evaluation of laceration to the pad of the third digit on her left hand. Patient reports that she is using a cheese grater when she accidentally cut her finger. Patient has a small partial amputation to the tip of her finger. Denies any other complaints. Patient states that tetanus is up-to-date. Systemic: Pt denies fatigue, fever/chills, rash. Pt denies weakness, night sweats, weight loss. Neuro: Pt denies headache, visual disturbances, syncope or pre-syncope. HEENT: Pt denies ocular discharge or irritation, otalgia, rhinorrhea, pharyngitis or notable lymphadenopathy. Cardiopulmonary: Pt denies chest pain, SOB, heart palpitations, dyspnea on exertion. Abdominal/GI: Pt denies abdominal pain, n/v/d. : Pt denies dysuria, burning w/ urination, frequency/urgency. Denies new onset urinary or bowel incontinence. MSK: Pt denies myalgia, loss of strength or function in extremities. Neuro: Pt denies new onset weakness, paresthesias. (Vern Calhoun) - Related Data Home Medications Medication Instructions Recorded Confirmed No Known Home Medications 12/19/18 12/19/18 Allergies Allergy/AdvReac Type Severity Reaction Status Date / Time pneumococcal 23-valent Allergy cellultitis Verified 12/19/18 16:51 polysacchari [From Pneumovax 23] Review of Systems ROS Other: All systems not noted in ROS Statement are negative. <Vern Calhoun - Last Filed: 12/12/19 17:46> ROS Other: All systems not noted in ROS Statement are negative. <Dianne Vu - Last Filed: 12/13/19 13:44> ROS Statement: Those systems with pertinent positive or pertinent negative responses have been documented in the HPI. Past Medical History Past Medical History: Asthma Additional Past Medical History / Comment(s): chronic back pain,hx gestational diabetes with 1 rst ,yeast infecetion under abdominal fold. History of Any Multi-Drug Resistant Organisms: None Reported Past Surgical History: Section, Tubal Ligation Past Anesthesia/Blood Transfusion Reactions: No Reported Reaction Additional Past Anesthesia/Blood Transfusion Reaction / Comment(s): no hx of general anesthesia Past Psychological History: No Psychological Hx Reported Smoking Status: Never smoker Past Alcohol Use History: None Reported Past Drug Use History: Marijuana - Past Family History Father Family Medical History: No Reported History <Vern Calhoun - Last Filed: 12/12/19 17:46> General Exam Limitations: no limitations <Vern Calhoun - Last Filed: 12/12/19 17:46> - General Exam Comments Initial Comments: Constitutional: NAD, AOX3, Pt has pleasant affect. HEENT: NC/AT, trachea midline, neck supple, no lymphadenopathy. External ears appear normal, without discharge. Mucous membranes moist. Eyes PERRLA, EOM intact. There is no scleral icterus. No pallor noted. Cardiopulmonary: RRR, no murmurs, rubs or gallops, no JVD noted. Lungs CTAB in anterior and posterior hernandez. No peripheral edema. Abdominal exam: Abdomen soft and non-distended. Neuro: CN II-XII grossly intact. No nuchal rigidity MSK: Small partial amputation distal tip of third digit to the pad of the finger. About 1 cm. Irrigated hemostasis achieved with Gelfoam. (Vern Calhoun) Course Vital Signs 12/12/19 12/12/19 16:01 16:28 Temperature 98 F 98.5 F Pulse Rate 83 73 Respiratory 18 16 Rate Blood Pressure 130/78 107/62 O2 Sat by Pulse 99 96 Oximetry Medical Decision Making <Vern Calhoun - Last Filed: 12/12/19 17:46> <Dianne Vu - Last Filed: 12/13/19 13:44> - Medical Decision Making 39 female patient received chief complaint laceration/partial amputation to the distal tip of the third digit using a cheese grater. Patient tetanus is up-to-date per patient. Patient vital signs are stable, afebrile. Physical exam displayed partial amputation about 1 cm. Patient wound was irrigated and then hemostasis was achieved with Gelfoam. Patient will be discharged with outpatient follow-up and return precautions. Case discussed with Dr. Vu. (Vern Calhoun) I was available for consultation in the emergency department. The history and physical exam were done by the midlevel provider. I was consulted for this patients care. I reviewed the case with the midlevel provider and based on their presentation of the patient, I agree with the assessment, medical decision making and plan of care as documented. Chart was dictated using [employer] dictation software. Attempts were made to correct any dictation errors however some typographical errors may persist. Patient was seen during a national state of emergency due to the Covid-19 pandemic. (Dianne Vu) Disposition Is patient prescribed a controlled substance at d/c from ED?: No <Vern Calhoun - Last Filed: 12/12/19 17:46> <Dianne Vu - Last Filed: 12/13/19 13:44> Clinical Impression: Laceration Disposition: HOME SELF-CARE Condition: Stable Instructions (If sedation given, give patient instructions): Laceration (ED) Additional Instructions: keep area clean and dry and covered. Leave dressing on for about 24 hours. Monitor for signs of infection. Redness and drainage. Return to ER if any worsening symptoms. Referrals: Gregorio Hayden MD [Primary Care Provider] - 1-2 days
== END 2019-12-12 17:25 | disposition home or self-care (01) ==
LOC: EC 15:59
DX: S68.123A Partial traumatic metacarpophalangeal amputation of left middle finger, initial encounter (principal); Z88.7 Allergy status to serum and vaccine; W27.4XXA Contact with kitchen utensil, initial encounter
CPT/HCPCS: 99283

== ENCOUNTER 2020-06-28 13:39 | Emergency (ER) | payer OTHER ==
[2020-06-28 13:44] VITALS: BP 138/82; PULSE 82; RESP 18; TEMP 98
--- NOTE | 2020-06-28 15:17 | ED ---
ENT HPI - General Chief complaint: ENT Stated complaint: Ear pain Time Seen by Provider: 06/28/20 14:40 Source: patient Mode of arrival: ambulatory Limitations: no limitations - History of Present Illness Initial comments: 40-year-old female presents to the emergency department with chief complaint of right ear pain. I ongoing for about 2 days. Patient reports now some of the pain is near her right TMJ. He denies any erythema in the region. She denies any swelling or redness in the posterior auricular region near the mastoid. Patient denies decreased hearing or any discharge from the ear. Denies any pain when pulling on the ear. She is not diabetic. Denies trauma to the ear. - Related Data Previous Rx's Medication Instructions Recorded Amoxicillin 875 mg PO Q12HR #20 tablet 06/28/20 Allergies Allergy/AdvReac Type Severity Reaction Status Date / Time pneumococcal 23-valent Allergy cellultitis Verified 06/28/20 13:44 polysacchari [From Pneumovax 23] Review of Systems ROS Statement: Those systems with pertinent positive or pertinent negative responses have been documented in the HPI. ROS Other: All systems not noted in ROS Statement are negative. Past Medical History Past Medical History: Asthma Additional Past Medical History / Comment(s): chronic back pain,hx gestational diabetes with 1 rst ,yeast infecetion under abdominal fold. History of Any Multi-Drug Resistant Organisms: None Reported Past Surgical History: Section, Tubal Ligation Past Anesthesia/Blood Transfusion Reactions: No Reported Reaction Additional Past Anesthesia/Blood Transfusion Reaction / Comment(s): no hx of general anesthesia Past Psychological History: No Psychological Hx Reported Smoking Status: Never smoker Past Alcohol Use History: None Reported Past Drug Use History: Marijuana - Past Family History Father Family Medical History: No Reported History General Exam Limitations: no limitations General appearance: alert, in no apparent distress Head exam: Present: atraumatic, normocephalic, normal inspection Eye exam: Present: normal appearance, PERRL, EOMI Pupils: Present: normal accommodation ENT exam: Present: normal exam, normal oropharynx (Bilateral TMJ syndrome.), mucous membranes moist, normal external ear exam (Normal external auditory canal.). Absent: TM's normal bilaterally (Small amount of erythema right tympanic membrane.), other (No mastoid tenderness, swelling or erythema.) Neck exam: Present: normal inspection, full ROM. Absent: tenderness, lymphadenopathy Respiratory exam: Present: normal lung sounds bilaterally. Absent: respiratory distress Cardiovascular Exam: Present: regular rate, normal rhythm, normal heart sounds Extremities exam: Present: normal inspection, full ROM, normal capillary refill. Absent: tenderness Back exam: Present: normal inspection, full ROM. Absent: tenderness, CVA tenderness (R), CVA tenderness (L) Neurological exam: Present: alert, oriented X3 Psychiatric exam: Present: normal affect, normal mood Skin exam: Present: warm, dry, intact, normal color Course Vital Signs 06/28/20 13:42 Temperature 98.0 F Pulse Rate 82 Respiratory 18 Rate Blood Pressure 138/82 O2 Sat by Pulse 100 Oximetry Medical Decision Making - Medical Decision Making 40-year-old female presents to the emergency department with a chief complaint of right ear pain. Physical examination reveals right-sided otitis media. She is not diabetic. No concern for otitis externa. No concern for mastoiditis. Patient will be started amoxicillin. Strict return parameters were thoroughly discussed the patient was understanding and agreeable. Disposition Clinical Impression: Otitis media, right Disposition: HOME SELF-CARE Condition: Stable Instructions (If sedation given, give patient instructions): Ear Infection (ED) Additional Instructions: Please return to the Emergency Department if symptoms worsen or any other concerns. Prescriptions: Amoxicillin 875 mg PO Q12HR #20 tablet Is patient prescribed a controlled substance at d/c from ED?: No Referrals: Gregorio Hayden MD [Primary Care Provider] - 1-2 days Baldemar Dela Cruz DO [Doctor of Osteopathic Medicine] - 1-2 days Time of Disposition: 15:17
== END 2020-06-28 15:39 | disposition home or self-care (01) ==
LOC: EC 13:39
DX: H66.91 Otitis media, unspecified, right ear (principal); M26.603 Bilateral temporomandibular joint disorder, unspecified; J45.909 Unspecified asthma, uncomplicated; G89.29 Other chronic pain; M54.9 Dorsalgia, unspecified; F12.90 Cannabis use, unspecified, uncomplicated
CPT/HCPCS: 99283

== ENCOUNTER 2024-08-13 18:57 | Emergency (ER) | payer OTHER ==
[2024-08-13 19:12] VITALS: RESP 18
--- NOTE | 2024-08-13 19:48 | ED ---
Animal Bite HPI - General Chief Complaint: Animal Bite Stated Complaint: Animal bite Time Seen by Provider: 08/13/24 19:08 Source: patient, RN notes reviewed Mode of arrival: ambulatory Limitations: no limitations - History of Present Illness Initial Comments: This is a 44-year-old female presenting for right bicep laceration occurring this afternoon. Patient states dog jumped up to her, happy to see her when she arrived home, scratching her right bicep. Patient denies other injuries, bandaging knee laceration shortly after it occurred. States she is unsure of tetanus vaccination status. MD Complaint: animal-related injury Onset/Timin -: hour(s) Right: Arm Animal: dog Description: household pet Mechanism: scratch Context: playing with animal Associated Symptoms: none Treatments Prior to Arrival: wound dressing(s) - Related Data Previous Rx's Medication Instructions Recorded Amoxicillin 875 mg PO Q12HR #20 tablet 06/28/20 Allergies Allergy/AdvReac Type Severity Reaction Status Date / Time pneumococcal 23-valent Allergy cellultitis Verified 06/28/20 13:44 polysacchari [From Pneumovax 23] Review of Systems ROS Statement: Those systems with pertinent positive or pertinent negative responses have been documented in the HPI. ROS Other: All systems not noted in ROS Statement are negative. Past Medical History Past Medical History: Asthma Additional Past Medical History / Comment(s): chronic back pain,hx gestational diabetes with 1 rst ,yeast infecetion under abdominal fold. History of Any Multi-Drug Resistant Organisms: None Reported Past Surgical History: Section, Tubal Ligation Past Anesthesia/Blood Transfusion Reactions: No Reported Reaction Additional Past Anesthesia/Blood Transfusion Reaction / Comment(s): no hx of general anesthesia Past Psychological History: No Psychological Hx Reported Smoking Status: Never smoker Past Alcohol Use History: None Reported Past Drug Use History: Marijuana - Past Family History Father Family Medical History: No Reported History General Exam Limitations: no limitations General appearance: alert, in no apparent distress Head exam: Present: atraumatic, normocephalic, normal inspection Eye exam: Present: normal appearance, PERRL, EOMI. Absent: scleral icterus, conjunctival injection, periorbital swelling ENT exam: Present: normal exam, mucous membranes moist Neck exam: Present: normal inspection. Absent: tenderness, meningismus, lymphadenopathy Respiratory exam: Present: normal lung sounds bilaterally. Absent: respiratory distress, wheezes, rales, rhonchi, stridor Cardiovascular Exam: Present: regular rate, normal rhythm, normal heart sounds. Absent: systolic murmur, diastolic murmur, rubs, gallop, clicks GI/Abdominal exam: Present: soft, normal bowel sounds. Absent: distended, tenderness, guarding, rebound, rigid Extremities exam: Present: full ROM, normal capillary refill, other (1.5 cm horizontal laceration noted on right distal bicep without bleeding, foreign body, surrounding erythema. Distal neurovascular and motor function intact. Radial pulse +2, capillary refill less than 2 seconds). Absent: tenderness, pedal edema, joint swelling, calf tenderness Back exam: Present: normal inspection Neurological exam: Present: alert, oriented X3, CN II-XII intact Psychiatric exam: Present: normal affect, normal mood Skin exam: Present: warm, dry, intact, normal color. Absent: rash Course Vital Signs 08/13/24 19:08 Temperature 98 F Pulse Rate 72 Respiratory 18 Rate Blood Pressure 173/94 O2 Sat by Pulse 99 Oximetry Medical Decision Making - Medical Decision Making Was pt. sent in by a medical professional or institution (, PA, [employer], urgent care, hospital, or prison...) When possible be specific @ -[No] Did you speak to anyone other than the patient for history (EMS, parent, family, police, friend...)? What history was obtained from this source @ -[No] Did you review nursing and triage notes (agree or disagree)? Why? @ -[I reviewed and agree with nursing and triage notes] Were old charts reviewed (outside hosp., previous admission, EMS record, old EKG, old radiological studies, urgent care reports/EKG's, prison records)? Report findings @ -[No old charts were reviewed] Differential Diagnosis (chest pain, altered mental status, abdominal pain women, abdominal pain men, vaginal bleeding, weakness, fever, dyspnea, syncope, headache, dizziness, GI bleed, back pain, seizure, CVA, palpatations, mental health, musculoskeletal)? @ -Differential Musculoskeletal Muscular strain, contusion, ligament sprain, fracture, arthritis, septic arthritis, bursitis, cellulitis, muscle spasm, nerve compression, DVT, arterial occlusion, herpes zoster, electrolyte abnormality, tumor.... This is not meant to be in all inclusive list EKG interpreted by me (3pts min.). @ -Not done X-rays interpreted by me (1pt min.). @ -[None done] CT interpreted by me (1pt min.). @ -[None done] U/S interpreted by me (1pt. min.). @ -[None done] What testing was considered but not performed or refused? (CT, X-rays, U/S, labs)? Why? @ -[None] What meds were considered but not given or refused? Why? @ -[None] Did you discuss the management of the patient with other professionals (professionals i.e. DrShahana, PA, [employer], lab, RT, psych nurse, health and social care teacher, touch up painter, teacher, credit control officer, counseling case manager)? Give summary @ -[No] Was smoking cessation discussed for >3mins.? @ -[No] Was critical care preformed (if so, how long)? @ -[No] Were there social determinants of health that impacted care today? How? (Homelessness, low income, unemployed, alcoholism, drug addiction, transportation, low edu. Level, literacy, decrease access to med. care, detention, rehab)? @ -[No] Was there de-escalation of care discussed even if they declined (Discuss DNR or withdrawal of care, Hospice)? DNR status @ -[No] What co-morbidities impacted this encounter? (DM, HTN, Smoking, COPD, CAD, Cancer, CVA, ARF, Chemo, Hep., AIDS, mental health diagnosis, sleep apnea, mo rbid obesity)? @ -[None] Was patient admitted / discharged? Hospital course, mention meds given and route, prescriptions, significant lab abnormalities, going to OR and other pertinent info. @ -[hospital course] Undiagnosed new problem with uncertain prognosis? @ -[No] Drug Therapy requiring intensive monitoring for toxicity (Heparin, Nitro, Insulin, Cardizem)? @ -[No] Were any procedures done? @ -Suture performed under sterile conditions. See procedure note. Diagnosis/symptom? @ -Laceration Acute, or Chronic, or Acute on Chronic? @ -Acute Uncomplicated (without systemic symptoms) or Complicated (systemic symptoms)? @ -Uncomplicated Side effects of treatment? @ -[No] Exacerbation, Progression, or Severe Exacerbation? @ -[No] Poses a threat to life or bodily function? How? (Chest pain, [place], [place], pneumonia, PE, COPD, DKA, ARF, appy, cholecystitis, CVA, Diverticulitis, Homicidal, Suicidal, threat to staff... and all critical care pts) @ -[No] Disposition Clinical Impression: Dog scratch, Laceration of right upper arm without complication Disposition: HOME SELF-CARE Condition: Good Instructions (If sedation given, give patient instructions): Care For Your Stitches (ED) Additional Instructions: Keep clean with antibacterial soap and water at least twice daily along with dressing change. Follow-up with medical facility in 7-10 days for suture removal. Follow-up with PCP for any ongoing or worsening symptoms at suture site. Referrals: None,Stated [Primary Care Provider] - 1-2 days Yuval Kinsey DO [STAFF PHYSICIAN] - 1-2 days
[2024-08-13] MEDS: LIDOCAINE 1% INJ 10MG/ML (20 ML MDV) SQ ONE (20:28)
[2024-08-13] MEDS: DIPH,PERTUS(ACELL)TETVAC-LF 0.5 ML VIAL IM ONE (20:30)
[2024-08-13 21:52] VITALS: BP 124/79; PULSE 79; TEMP 97.8
== END 2024-08-13 22:16 | disposition home or self-care (01) ==
LOC: EC 18:57
DX: S41.111A Laceration without foreign body of right upper arm, initial encounter (principal); Z23 Encounter for immunization; Z88.8 Allergy status to other drugs, medicaments and biological substances; W54.1XXA Struck by dog, initial encounter; Y30.XXXA Falling, jumping or pushed from a high place, undetermined intent, initial encounter
CPT/HCPCS: 90715; 99283; 90471; 12001; J2003